=== PATIENT | female | born 1970 | race Caucasian/White ===

== ENCOUNTER 2017-09-30 08:15 | Outpatient (CLI) | payer BC ==
--- NOTE | 2017-10-06 09:58 | MMO ---
BILATERAL MAMMOGRAMS: HISTORY: Screening mammography. COMPARISON: 02/19/2014 FINDINGS: Scattered fibroglandular densities and benign appearing calcifications. No dominant mass or suspicio us calcifications. The study was evaluated with the assistance of computer aided detection. IMPRESSION: BI-RADS Category 1-Negative. Suggest routine followup. POS: [facility]
== END 2017-09-30 08:16 | disposition home or self-care (01) ==
LOC: SCSMAMMO 08:15
PROVIDERS: ATTEND Family Medicine
DX: Z12.31 Encounter for screening mammogram for malignant neoplasm of breast (principal)
CPT/HCPCS: 77067

== ENCOUNTER 2018-09-13 16:39 | Outpatient (CLI) | payer BC ==
--- NOTE | 2018-09-13 17:02 | RAD ---
RIGHT FOOT THREE VIEW: 09/13/18 HISTORY: M79.672. Injury. Foot pain. COMPARISON: None. FINDINGS: No acute fracture or malalignment. Mild degenerative disease of the great toe tarsometatarsal joint. There is a large dorsal and plantar calcaneal spurs. IMPRESSION: No acute osseous abnormality. POS: [facility]
--- NOTE | 2018-09-13 17:04 | RAD ---
LEFT FOOT THREE VIEW 09/13/18 HISTORY: Pain. COMPARISON: None. FINDINGS: No fracture. No malalignment. Soft tissues are unremarkable. There is mild lateral subluxation of the second metatarsal base at the Lisfranc interval of the small osseous plate which may reflect an old fracture. Small plantar calcaneal spur. IMPRESSION: Findings concerning for Lisfranc injury with lateral subluxation of the second metatarsal base as we ll as a small flake of bone at the first tarsal second metatarsal interspace, Lisfranc interval. POS: HOME
== END 2018-09-13 16:40 | disposition home or self-care (01) ==
LOC: SCSRAD 16:39
PROVIDERS: ATTEND Family Medicine
DX: M79.671 Pain in right foot (principal); M79.672 Pain in left foot; S93.332A Other subluxation of left foot, initial encounter